=== PATIENT | male | born 1990 | race Caucasian/White ===

== ENCOUNTER 2021-02-28 06:30 | Day surgery (SDC) | payer MEDICAID, SELFPAY ==
[~2021-02-28] VITALS: Ht 152.4 cm; Wt 152.0 kg
[2021-02-28] MEDS ORDERED: ONDANSETRON 4 MG ODT TAB PO PRN (10:15)
[2021-02-28] MEDS ORDERED: ONDANSETRON HCL 4 MG/2 ML VIAL IVP PRN ×2 (10:15→13:00)
[2021-02-28] MEDS ORDERED: HYDROmorphone 1 MG/ML INJ. CARTRIDGE IVP PRN ×2 (10:15)
[2021-02-28] MEDS ORDERED: LR 1,000 ML IV SCH (10:15)
[2021-02-28] MEDS ORDERED: METOCLOPRAMIDE HCL 10 MG/2 ML VIAL IVP PRN (10:15)
[2021-02-28] MEDS ORDERED: MEPERIDINE HCL/PF 25 MG/ML DISP.SYRIN IVP PRN (10:15)
[2021-02-28] MEDS ORDERED: ONDANSETRON HCL 4 MG/2 ML VIAL ONE (11:21)
[2021-02-28 12:29] VITALS: BP_SYST 141
[2021-02-28] MEDS ORDERED: HYDROcodone/ACETAMIN 5-325 MG TAB (NORCO/ VICODIN) PO PRN (13:00)
== END 2021-02-28 12:25 | disposition home or self-care (01) ==
LOC: SDS 06:30 → SMU 06:33 → SDS 12:25
PROVIDERS: ATTEND Otolaryngology
DX: J34.2 Deviated nasal septum (principal); J34.3 Hypertrophy of nasal turbinates; E66.9 Obesity, unspecified; Z79.899 Other long term (current) drug therapy
CPT/HCPCS: 30140; 30520; 36415; 87426; J2405